=== PATIENT | female | born 1945 | race Caucasian/White ===

== ENCOUNTER → 2016-10-08 | Outpatient (CLI) | payer MEDICARE | LOC: EMI 10-03 17:30 | DX: M54.5 Low back pain (principal); M25.562 Pain in left knee; M51.36 Other intervertebral disc degeneration, lumbar region; M51.37 Other intervertebral disc degeneration, lumbosacral region | CPT/HCPCS: 72148 ==

== ENCOUNTER → 2020-09-11 | Outpatient (CLI) | payer OTHER ==
[~2020-09-11] MED LIST: ATORVASTATIN CA20 MG PO; CLARITIN10 M2 PO; GABAPENTIN600 MG PO; HYDROCODON-ACE1 EAC6 PO; LO-DOSE ASPIRIN81 MG PO; LOPRESSOR 25 MG25 MG PO; NITROGLYCERIN0.4 MG SL; NORVASC 5 MG TAB5 MG PO; VALIUM 5 MG TAB5 MG PO; VENTOLIN HFA 66.7 GM INH
== END ==
LOC: MRI 08-31 09:30
DX: M47.816 Spondylosis without myelopathy or radiculopathy, lumbar region (principal)
CPT/HCPCS: 36415; 72158; 82565; A9577

== ENCOUNTER 2021-09-24 16:13 | Emergency (ER) | payer OTHER, SELFPAY ==
[2021-09-24 16:59] LABS: HEMOGLOBIN 13.9 gm/dl (12.3-15.3); RED BLOOD COUNT 4.56 M/UL (4.00-5.10); WHITE BLOOD COUNT 4.2 K/UL (4.5-11.0)
[2021-09-24 17:27] LABS: BUN/CREATININE RATIO 21 (0-10)
== END 2021-09-24 21:27 | disposition left against medical advice (07) ==
LOC: ER1 16:13
PROVIDERS: Physician Assistant
DX: R50.9 Fever, unspecified (principal); R05.9 Cough, unspecified; R06.02 Shortness of breath; E78.5 Hyperlipidemia, unspecified; J45.909 Unspecified asthma, uncomplicated; Z20.822 Contact with and (suspected) exposure to COVID-19
CPT/HCPCS: 0240U; 71045; 80053; 82550; 82553; 84484; 85025; 93005; 99281